=== PATIENT | male | born 1955 | race Caucasian/White ===

== ENCOUNTER 2018-10-09 12:05 | Emergency (ER) | payer OTHER, SELFPAY ==
[2018-10-09 12:19] VITALS: BP 149/92; PULSE 86; RESP 18; TEMP 36.6; O2SAT 99
--- NOTE | 2018-10-09 12:19 | ED.GENADULT ---
HPI - General Adult <MARCO Gan - Last Filed: 10/09/18 14:00> General Chief complaint: Environmental Exposure Stated complaint: Showered with raw sewage Time Seen by Provider: 10/09/18 12:07 Source: patient Mode of arrival: ambulatory Limitations: no limitations History of Present Illness HPI narrative: The patient is a 63-year-old male former smoker with history of polycythemia vera who presents with a chief complaint of an exposure during work. 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 He states that he showered off when he got home. He is unsure of his vaccinations status. He denies any pain, abdominal pain, vomiting or diarrhea since the incident. He has no current medical complaints, but is concerned about his exposure. Related Data Home Medications Medication Instructions Recorded Confirmed ASPIRIN (Aspirin Low Dose) 81 mg PO EVERY OTHER DAY #0 07/14/10 Allergies Allergy/AdvReac Type Severity Reaction Status Date / Time Sulfa (Sulfonamide Allergy Verified 10/09/18 12:24 Antibiotics) Review of Systems <MARCO Gan - Last Filed: 10/09/18 14:00> Review of Systems GENERAL: See HPI HEENT: Denies sinus pain, ear pain, sore throat, difficulty swallowing, dizziness. RESPIRATORY: Denies dyspnea, cough, wheezing, hemoptysis, sputum. CARDIOVASCULAR: Denies chest pain, palpitations, orthopnea, edema, GASTROINTESTINAL: Denies nausea, vomiting, abdominal pain, diarrhea, constipation, melena. : Denies dysuria, frequency, incontinence, hematuria, urinary retention. MUSCULOSKELETAL: denies weakness, joint pain, or bony pain SKIN: Denies rash, skin lesions, or other NEUROLOGIC: Denies weakness, headache, numbness, change in speech, confusion, seizures, incoordination. PSYCHIATRIC: No concerning psychosocial issues. 12 point review of systems is negative except for those stated above PFSH <MARCO Gan - Last Filed: 10/09/18 14:00> Medical History (Updated 10/09/18 @ 13:54 by MARCO Gan) Polycythemia vera (Acute) Social History Smoking Status: Former smoker Social History Smoking Status: Former smoker Exam <MARCO Gan - Last Filed: 10/09/18 14:00> Narrative Exam Narrative: GENERAL: Obese gentleman no acute distress HEAD: Atraumatic. Normocephalic. No temporal or scalp tenderness. EYES: Pupils equal round and reactive. Extraocular motions intact. No scleral icterus. No injection or drainage. ENT: Nose without bleeding, purulent drainage or septal hematoma. Throat without erythema, tonsillar hypertrophy or exudate. Uvula midline. Airway patent. NECK: Trachea midline. No JVD or lymphadenopathy. Supple, nontender, no meningeal signs. CARDIOVASCULAR: Regular rate and rhythm RESPIRATORY: Clear to auscultation. Breath sounds equal bilaterally. No wheezes, rales, or rhonchi. No cough. No increased respiratory effort. No accessory muscle use. GASTROINTESTINAL: Abdomen soft, non-tender, nondistended. No hepato-splenomegaly, or palpable masses. No guarding. EXTREMITIES: No clubbing, cyanosis, or edema. No joint tenderness, effusion, or edema noted. BACK: Nontender without deformity or crepitance. No flank tenderness. NEURO: AOx3. SKIN: Small abrasions noted on hands. Dry hands noted. Initial Vital Signs Initial Vital Signs: Vital Signs Temperature 97.9 F 10/09/18 12:19 Pulse Rate 86 10/09/18 12:19 Respiratory Rate 18 10/09/18 12:19 Blood Pressure 149/92 H 10/09/18 12:19 Pulse Oximetry 99 10/09/18 12:19 <Riddhi Wilson DO - Last Filed: 10/09/18 18:53> Initial Vital Signs Initial Vital Signs: Vital Signs Temperature 97.9 F 10/09/18 12:19 Pulse Rate 86 10/09/18 12:19 Respiratory Rate 18 10/09/18 12:19 Blood Pressure 149/92 H 10/09/18 12:19 Pulse Oximetry 99 10/09/18 12:19 Course <MARCO Gan - Last Filed: 10/09/18 14:00> Vital Signs - 8 hr 10/09/18 12:19 10/09/18 13:40 Temperature 97.9 F Pulse Rate 86 79 Respiratory Rate 18 18 Blood Pressure 149/92 H Blood Pressure [Left Arm] 135/78 Pulse Oximetry 99 99 <Riddhi Wilson DO - Last Filed: 10/09/18 18:53> Vital Signs - 8 hr 10/09/18 12:19 10/09/18 13:40 Temperature 97.9 F Pulse Rate 86 79 Respiratory Rate 18 18 Blood Pressure 149/92 H Blood Pressure [Left Arm] 135/78 Pulse Oximetry 99 99 Medical Decision Making <Bessy Dang [employer] - Last Filed: 10/09/18 14:00> MDM Narrative Medical decision making narrative: The patient is a 63-year-old male who presents for sewage exposure. He has no signs or symptoms at this point time is afebrile denies any vomiting or diarrhea. Given that he states he got sewage in his eye, visual acuity was taken with no deficit. I did discuss at length that he needs to watch for symptoms such as vomiting, diarrhea fever and be evaluated if these occur. The patient presents requesting shots for viruses. I discussed that since he has not symptomatic, is difficult to test anything. Hepatitis-B is blood borne, hepatitis A is found in stool. I discussed at length that he could follow up with his PCP for consideration of a hepatitis-A vaccination, up-to-date states that this can be done 2 weeks post exposure. Given the presentation of this patient, I did discuss workup with Dr. Wilson who suggested watchful waiting. Patient's paperwork was filled out per protocol. No questions or concerns upon discharge. Discharge Plan Departure Patient Disposition: Home Clinical Impression: Environmental exposure Discharge Date/Time: 10/09/18 13:44 Interventions: ED Discharge Assessment Last Done: 10/09/18 13:44 Activity Restrictions/Additional Instructions: Please follow-up with primary care provider. Hepatitis A can be found in sewage; this is the primary exposure of concern. Please follow up with primary care provider regarding hepatitis A vaccination. Please monitor for fever vomiting or diarrhea. Please monitor for signs of eye infection such as discharge or redness. Prescriptions: No Action ASPIRIN (Aspirin Low Dose) 81 mg PO EVERY OTHER DAY Qty: 0 RF: 0 <Riddhi Wilson DO - Last Filed: 10/09/18 18:53> Cosign ED Attending Jiaature Attestation: I was immediately available in the department for consultation. Documentation has been reviewed. I agree with assessment and plan.
[2018-10-09 13:40] VITALS: BP 135/78; PULSE 79; RESP 18; O2SAT 99
== END 2018-10-09 13:44 | disposition home or self-care (01) ==
PROVIDERS: Emergency Provider Nurse Practitioner Family
DX: T75.89XA Other specified effects of external causes, initial encounter (principal); X58.XXXA Exposure to other specified factors, initial encounter; Y99.0 Civilian activity done for income or pay
CPT/HCPCS: 99282; 99283